=== PATIENT | female | born 1960 ===

== ENCOUNTER 2017-04-14 11:40 | Observation (INO) | payer MEDICAID ==
--- NOTE | 2017-04-14 13:01 | ED PDOC ---
HPI: Hypertension/Hypotension Time Seen by Provider: 04/14/17 12:00 Chief Complaint (Nursing): High Blood Pressure History Per: Patient History/Exam Limitations: no limitations Onset/Duration Of Symptoms: Days (3), Gradual Current Symptoms Are (Timing): Still Present Associated Symptoms: Chest Pain. denies: Dyspnea, Dizziness, Blurred Vision, Focal Weakness, Headache Severity: Mild Exacerbating Factor(s): Pos: None Additional History Per: Patient Additional Complaint(s): intermittent chest pressure for 3 days sent in by medical clinic Past Medical History Reviewed: Historical Data, Nursing Documentation, Vital Signs Vital Signs: Last Vital Signs Temp 99.4 F 04/14/17 11:43 Pulse 112 H 04/14/17 11:43 Resp 18 04/14/17 11:43 BP 118/82 04/14/17 11:43 Pulse Ox 99 04/14/17 11:43 - Medical History PMH: HTN, Hypercholesterolemia, Hypothyroidism - Surgical History Surgical History: - Family History Family History: States: Unknown Family Hx - Living Arrangements Living Arrangements: With Family - Social History Current smoker - smoking cessation education provided: No - Allergies Allergies/Adverse Reactions: Allergies Allergy/AdvReac Type Severity Reaction Status Date / Time Penicillins Allergy RASH Verified 04/14/17 11:43 Review of Systems ROS Statement: Except As Marked, All Systems Reviewed And Found Negative Constitutional: Negative for: Fever, Chills Cardiovascular: Positive for: Chest Pain. Negative for: Palpitations Respiratory: Negative for: Cough, Shortness of Breath Gastrointestinal: Negative for: Nausea, Vomiting, Abdominal Pain Musculoskeletal: Negative for: Neck Pain Neurological: Negative for: Weakness, Numbness Physical Exam - Reviewed Nursing Documentation Reviewed: Yes Vital Signs Reviewed: Yes - Physical Exam Appears: Positive for: Uncomfortable Head Exam: Positive for: ATRAUMATIC, NORMAL INSPECTION, NORMOCEPHALIC Eye Exam: Positive for: Normal appearance, EOMI Neck: Positive for: Normal, Painless ROM, Supple. Negative for: Decreased ROM, Limited ROM, Trachea Midline Cardiovascular/Chest: Positive for: Regular Rate, Rhythm, Chest Non Tender. Negative for: Edema, Gallop, Murmur, Bradycardia, Tachycardia Respiratory: Positive for: Normal Breath Sounds. Negative for: Decreased Breath Sounds, Accessory Muscle Use, Crackles, Rales, Rhonchi, Stridor, Wheezing , Respiratory Distress Pulses-Radial (L): 2+ Pulses-Radial (R): 2+ Gastrointestinal/Abdominal: Positive for: Normal Exam, Bowel Sounds, Soft. Negative for: Tenderness Back: Positive for: Normal Inspection. Negative for: L CVA Tenderness, R CVA Tenderness, Vertebral Tenderness Extremity: Positive for: Normal ROM. 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 Negative for: Motor/Sensory Deficits, Aphasia, Facial Droop - Laboratory Results Result Diagrams: 04/14/17 12:57 04/14/17 12:57 - ECG ECG: Positive for: Interpreted By Me ECG Rhythm: Positive for: Normal QRS, Normal ST Segment, Sinus Rhythm. Negative for: ST/T Changes Interpretation Of Abn EK nsr, non specifc t wave inversion in v2. O2 Sat by Pulse Oximetry: 99 Pulse Ox Interpretation: Normal Disposition - Clinical Impression Clinical Impression: Chest pain - Patient ED Disposition Is Patient to be Admitted: Yes Counseled Patient/Family Regarding: Studies Performed, Diagnosis - Disposition Disposition Time: 16:30 Condition: STABLE Forms: [employer] (Palestinian) - Pt Status Changed To: Hospital Disposition Of: Observation - POA Present On Arrival: None
--- NOTE | 2017-04-14 13:29 | RAD ---
HISTORY: chest pain COMPARISON: 01/16/2014 TECHNIQUE: Chest PA and lateral FINDINGS: LUNGS: No active pulmonary disease. PLEURA: No significant pleural effusion identified. No pneumothorax apparent. CARDIOVASCULAR: No radiographic findings to suggest acute or significant cardiovascular disease. OSSEOUS STRUCTURES: No significant abnormalities. VISUALIZED UPPER ABDOMEN: Normal. OTHER FINDINGS: None. IMPRESSION: No active disease. No significant interval change compared to the prior examination(s). Concordant results with the preliminary interpretation rendered by the emergency department physician procedure.
[2017-04-14 13:41] LABS: BASO % 0.9 % (0.0-2.0); EOS # 0.1 K/uL (0.0-0.7); EOS % 2.5 % (0.0-4.0); HEMOGLOBIN 13.2 g/dL (12.0-16.0); LYMPH # 1.3 K/uL (1.0-4.3); MEAN CELL VOLUME 86.9 fl (81.0-99.0); MEAN CORPUSCULAR HEMOGLOBIN 28.2 pg (27.0-31.0); MEAN CORPUSCULAR HGB CONC 32.4 g/dL (33.0-37.0); MEAN PLATELET VOLUME 9.8 fl (7.2-11.7); MONO # 0.4 K/uL (0.0-0.8); NEUT # 3.4 K/uL (1.8-7.0); NEUT % 64.6 % (50.0-75.0); NRBC % 0.1 % (0.0-0.0); RBC 4.68 Mil/uL (3.80-5.20); RED CELL DISTRIBUTION WIDTH 13.7 % (11.5-14.5); WHITE BLOOD COUNT 5.2 K/uL (4.8-10.8)
[2017-04-14 13:56] LABS: ALB/GLOB RATIO 1.3 (1.0-2.1); ALBUMIN 4.4 g/dL (3.5-5.0); ALT/SGPT 34 U/L (9-52); AST/SGOT 24 U/L (14-36); BLOOD UREA NITROGEN 10 mg/dl (7-17); CALCIUM 9.1 mg/dL (8.4-10.2); GFR AFRICAN-AMERICAN > 60; GFR NON-AFRICAN AMERICAN > 60; LIPASE 199 U/L (23-300)
[2017-04-14 14:04] LABS: INR 1.1 (0.9-1.2); PROTHROMBIN TIME 10.8 Seconds (9.8-13.1)
[2017-04-14 14:09] LABS: B-TYPE NATRIURETIC PEPTIDE 46.5 pg/ml (0-900)
[2017-04-14 15:10] LABS: SQUAMOUS EPITHIAL 1 /hpf (0-5); URINE BACTERIA RARE (<OCC); URINE BILIRUBIN NEGATIVE (NEGATIVE); URINE BLOOD NEGATIVE (NEGATIVE); URINE CLARITY SLIGHTY-CLOUDY (Clear); URINE COLOR YELLOW (YELLOW); URINE GLUCOSE (UA) NEG (Normal); URINE LEUKOCYTE ESTERASE NEG Leu/uL (Negative); URINE NITRATE NEGATIVE (NEGATIVE); URINE PROTEIN NEGATIVE (NEGATIVE); URINE UROBILINOGEN 0.2-1.0 mg/dL (0.2-1.0)
--- NOTE | 2017-04-14 19:56 | CP.PCM.HP ---
History of Present Illness - History of Present Illness History of Present Illness: 56 y/o F with PMH including HTN, HLD, Hypothyroidism, Prediabetes presented to ED with 2 day history of chest pain. Patient states pain is poorly localized and "pressure" like in quality, as if "someone is pushing on my chest." Pain has been intermittent, occurring approximately twice per day and lasting 10-20 minutes at a time and not associated with physical activity. Patient does not identify any alleviating or aggravating factors. Patient states she is able to walk over 1 mile and at least 10 flights of stairs without exertional chest pain or SOB. She denies any associated fevers, chills, headaches, diaphoresis, cough, abdominal pain, nausea or vomiting. Patient further denies tobacco, ETOH or illicit drug abuse. She has experienced similar symptoms years ago which were associated with anxiety and possible PTSD secondary to the loss of 2 siblings in ' and 97'. She has taken unknown anxiolytics in the past but does not recall the names and does not wish to take any currently. Patient is guarded about her psych history. She states "sometimes I just think about things ," but denies depression, suicidal/homicidal ideation or auditory/visual hallucinations. PMD: NHC Present on Admission - Present on Admission Any Indicators Present on Admission: No History of DVT/PE: No History of Uncontrolled Diabetes: No Urinary Catheter: No Decubitus Ulcer Present: No Past Patient History - Past Social History Smoking Status: Never Smoked Alcohol: None Drugs: Denies Home Situation {Lives}: With Family (With 90 y/o mother ) - CARDIAC Hx Hypercholesterolemia: Yes Hx Hypertension: Yes - PULMONARY Hx Respiratory Disorders: No - ENDOCRINE/METABOLIC Hx Hypothyroidism: Yes - PSYCHIATRIC Hx Anxiety: Yes Hx Post Traumatic Stress Disorder: Yes Hx Substance Use: No - SURGICAL HISTORY Hx Section: Yes (x 4) Hx Hysterectomy: Yes - ANESTHESIA Hx Anesthesia: Yes Hx Anesthesia Reactions: No Hx Malignant Hyperthermia: No Meds Allergies/Adverse Reactions: Allergies Allergy/AdvReac Type Severity Reaction Status Date / Time Penicillins Allergy RASH Verified 04/14/17 11:43 Physical Exam - Constitutional Appears: Non-toxic, No Acute Distress - Head Exam Head Exam: ATRAUMATIC, NORMAL INSPECTION, NORMOCEPHALIC - Eye Exam Eye Exam: EOMI, PERRL - ENT Exam ENT Exam: Mucous Membranes Moist - Respiratory Exam Respiratory Exam: Clear to Auscultation Bilateral, NORMAL BREATHING PATTERN. absent: Chest Wall Tenderness, Rhonchi, Wheezes, Respiratory Distress - Cardiovascular Exam Cardiovascular Exam: REGULAR RHYTHM, RRR, +S1, +S2. absent: Systolic Murmur - GI/Abdominal Exam GI & Abdominal Exam: Normal Bowel Sounds, Soft. absent: Distended, Guarding, Rebound, Tenderness - Extremities Exam Extremities exam: Positive for: normal capillary refill. Negative for: calf tenderness, pedal edema - Neurological Exam Neurological exam: Alert, Oriented x3 - Psychiatric Exam Psychiatric exam: Anxious - Skin Skin Exam: Dry, Normal Color, Warm Results - Vital Signs Recent Vital Signs: Last Vital Signs Temp 98.5 F 04/14/17 17:52 Pulse 85 04/14/17 17:52 Resp 18 04/14/17 17:52 BP 151/95 H 04/14/17 17:52 Pulse Ox 100 04/14/17 17:52 - Labs Result Diagrams: 04/14/17 12:57 04/14/17 12:57 Assessment & Plan - Assessment and Plan (Free Text) Assessment: 56 y/o F with PMH including HTN, HLD, Hypothyroidism, Prediabetes, Anxiety d/o presented to ED with 2 day history of chest pain. Plan: Chest pain -Etiology undetermined, rule out ACS -Patient denies active chest pain at time of assessment -EKG does not reveal any acute ischemic changes -Troponin negative x1, will follow serial troponins -CXR no acute pulmonary disease -D-dimer WNL -Lipase WNL -ASA 325mg PO administered -Atorvastatin 20mg PO qhs -O2 via NC prn -Admit to telemetry for continuous cardiac monitoring Hypertension -Well controlled -Continue metoprolol tartrate 12.5mg PO bid and ramipril 5mg PO daily as per home meds Hypothyroidism -Last TSH: 2.410 on 06/15/16 -Repeat TSH ordered -Continue Synthroid 50mcg daily Prediabetes -Last HgbA1c: 6.1% on 10/06/16 -Moderate consistent carbohydrate diet Hyperlipidemia -Last lipid panel performed on 06/15/16: Total chol: 150, LDL: 83, HDL: 42 -Repeat lipid panel -Continue Atorvastatin 20mg PO HS Obesity -BMI 34.5 DVT Prophylaxis -Lovenox 40mg SC daily
[2017-04-15] MEDS ORDERED: Levothyroxine 50 MCG TAB PO SCH (06:30)
[2017-04-15 08:27] LABS: HDL CHOLESTEROL 40 MG/DL (30-70)
[2017-04-15 08:37] LABS: LDL CHOLESTEROL 91 mg/dL (0-129)
[2017-04-15] MEDS ORDERED: Enoxaparin 40 mg Syringe SC SCH (09:00)
--- NOTE | 2017-04-15 14:22 | CARD ---
APPROVED REPORT EKG Measurement Heart [id number] ND [id number] <Conclusion> Normal sinus rhythm with sinus arrhythmia Normal ECG
[2017-04-15 16:01] VITALS: BP 114/81; PULSE 79; RESP 18; TEMP 98; O2SAT 97
--- NOTE | 2017-04-15 16:06 | CP.PCM.DIS ---
Provider - Provider Date of Admission: 04/14/17 18:57 Attending physician: Betty Guzman MD Time Spent in preparation of Discharge (in minutes): 35 Diagnosis - Discharge Diagnosis (1) Chest pain Status: Resolved Hospital Course - Lab Results Lab Results: Most Recent Lab Values WBC 5.2 K/uL (4.8-10.8) 04/14/17 12:57 RBC 4.68 Mil/uL (3.80-5.20) 04/14/17 12:57 Hgb 13.2 g/dL (12.0-16.0) 04/14/17 12:57 Hct 40.7 % (34.0-47.0) 04/14/17 12:57 MCV 86.9 fl (81.0-99.0) 04/14/17 12:57 MCH 28.2 pg (27.0-31.0) 04/14/17 12:57 MCHC 32.4 g/dL (33.0-37.0) L 04/14/17 12:57 RDW 13.7 % (11.5-14.5) 04/14/17 12:57 Plt Count 161 K/uL (130-400) 04/14/17 12:57 MPV 9.8 fl (7.2-11.7) 04/14/17 12:57 Neut % (Auto) 64.6 % (50.0-75.0) 04/14/17 12:57 Lymph % (Auto) 24.0 % (20.0-40.0) 04/14/17 12:57 Petroleum % (Auto) 8.0 % (0.0-10.0) 04/14/17 12:57 Eos % (Auto) 2.5 % (0.0-4.0) 04/14/17 12:57 Baso % (Auto) 0.9 % (0.0-2.0) 04/14/17 12:57 Neut # 3.4 K/uL (1.8-7.0) 04/14/17 12:57 Lymph # 1.3 K/uL (1.0-4.3) 04/14/17 12:57 Petroleum # 0.4 K/uL (0.0-0.8) 04/14/17 12:57 Eos # 0.1 K/uL (0.0-0.7) 04/14/17 12:57 Baso # 0.0 K/uL (0.0-0.2) 04/14/17 12:57 PT 10.8 Seconds (9.8-13.1) 04/14/17 12:57 INR 1.1 (0.9-1.2) 04/14/17 12:57 APTT 29.0 Seconds (25.6-37.1) 04/14/17 12:57 D-Dimer, Quantitative 207 ng/mlDDU (0-230) 04/14/17 12:57 Sodium 141 mmol/l (132-148) 04/14/17 12:57 Potassium 4.1 MMOL/L (3.6-5.0) 04/14/17 12:57 Chloride 106 mmol/L (98-107) 04/14/17 12:57 Carbon Dioxide 25 mmol/L (22-30) 04/14/17 12:57 Anion Gap 14 (10-20) 04/14/17 12:57 BUN 10 mg/dl (7-17) 04/14/17 12:57 Creatinine 0.7 mg/dL (0.7-1.2) 04/14/17 12:57 Est GFR ( Amer) > 60 04/14/17 12:57 Est GFR (Non-Af Amer) > 60 04/14/17 12:57 Random Glucose 117 mg/dL (65-105) H 04/14/17 12:57 Calcium 9.1 mg/dL (8.4-10.2) 04/14/17 12:57 Magnesium 2.0 MG/DL (1.6-2.3) 04/14/17 12:57 Total Bilirubin 0.4 mg/dl (0.2-1.3) 04/14/17 12:57 AST 24 U/L (14-36) 04/14/17 12:57 ALT 34 U/L (9-52) 04/14/17 12:57 Alkaline Phosphatase 129 U/L (38-126) H 04/14/17 12:57 Troponin I < 0.0120 ng/mL (0.00-0.120) 04/15/17 06:00 NT-Pro-B Natriuret Pep 46.5 pg/ml (0-900) 04/14/17 12:57 Total Protein 7.8 G/DL (6.3-8.2) 04/14/17 12:57 Albumin 4.4 g/dL (3.5-5.0) 04/14/17 12:57 Globulin 3.4 gm/dL (2.2-3.9) 04/14/17 12:57 Albumin/Globulin Ratio 1.3 (1.0-2.1) 04/14/17 12:57 Triglycerides 130 mg/DL (0-149) 04/15/17 06:00 Cholesterol 166 mg/dL (0-199) 04/15/17 06:00 LDL Cholesterol Direct 91 mg/dL (0-129) 04/15/17 06:00 HDL Cholesterol 40 MG/DL (30-70) 04/15/17 06:00 Lipase 199 U/L (23-300) 04/14/17 12:57 TSH 3rd Generation 4.49 mIU/ML (0.46-4.68) 04/15/17 06:00 Urine Color Yellow (YELLOW) 04/14/17 14:50 Urine Clarity Slighty-cloudy (Clear) 04/14/17 14:50 Urine pH 5.0 (5.0-8.0) 04/14/17 14:50 Ur Specific [place] 1.019 (1.003-1.030) 04/14/17 14:50 Urine Protein Negative mg/dL (NEGATIVE) 04/14/17 14:50 Urine Glucose (UA) Neg mg/dL (Normal) 04/14/17 14:50 Urine Ketones Negative mg/dL (NEGATIVE) 04/14/17 14:50 Urine Blood Negative (NEGATIVE) 04/14/17 14:50 Urine Nitrate Negative (NEGATIVE) 04/14/17 14:50 Urine Bilirubin Negative (NEGATIVE) 04/14/17 14:50 Urine Urobilinogen 0.2-1.0 mg/dL (0.2-1.0) 04/14/17 14:50 Ur Leukocyte Esterase Neg [place]/uL (Negative) 04/14/17 14:50 Urine RBC (Auto) 4 /hpf (0-3) H 04/14/17 14:50 Urine Microscopic WBC 1 /hpf (0-5) 04/14/17 14:50 Ur Squamous Epith Cells 1 /hpf (0-5) 04/14/17 14:50 Urine Bacteria Rare (<OCC) 04/14/17 14:50 - Hospital Course Hospital Course: 56 year old female HTN, HLD, Hypothyroidism and prediabeties, admitted for chest pain, ACS was ruled out. Chest pain resolved. EKG and troponins negative. TSH WNL. Will start the patient on ToprolXL 25mg. She will follow up with Scientific Technical Writer, Dr. Pina next week. Spoke with Dr. Dorsey, patient to come to office for follow up. She has an appt. with Dr. Taylor on May 01 at 3:40PM. Medications: Start Toprol 25mg continue: Ramipril 5mg Levothyroxine 50mg Atorvastatin 20mg Discharge Exam - Head Exam Head Exam: ATRAUMATIC, NORMAL INSPECTION, NORMOCEPHALIC - Eye Exam Eye Exam: EOMI, Normal appearance, PERRL - Respiratory Exam Respiratory Exam: UNREMARKABLE - Cardiovascular Exam Cardiovascular Exam: REGULAR RHYTHM, RRR, +S1, +S2 - GI/Abdominal Exam GI & Abdominal Exam: Normal Bowel Sounds, Unremarkable. absent: Tenderness - Neurological Exam Neurological exam: Alert, CN II-XII Intact, Normal Gait, Oriented x3 - Psychiatric Exam Psychiatric exam: Normal Affect, Normal Mood - Skin Skin Exam: Dry, Intact, Warm Discharge Plan - Discharge Medications Prescriptions: Metoprolol Succinate [Toprol XL] 25 mg PO DAILY #30 tab - Follow Up Plan Condition: STABLE Disposition: HOME/ ROUTINE Instructions: Chest Pain (DC) Additional Instructions: Patient will follow up at the [facility] on May 01 At 3:[address] Taylor. She will also make follow up appt. with her executive wellness programs director, Dr. Pina on Monday.
== END 2017-04-15 17:55 | disposition home or self-care (01) ==
LOC: H.ER 11:40 → H.ERHOLD 18:57 → H.TEL 21:03
PROVIDERS: ADMIT Family Medicine Geriatric Medicine; ATTEND Family Medicine Geriatric Medicine
DX: R07.9 Chest pain, unspecified (principal); E03.9 Hypothyroidism, unspecified; E78.00 Pure hypercholesterolemia, unspecified; E78.5 Hyperlipidemia, unspecified; R73.03 Prediabetes; F43.10 Post-traumatic stress disorder, unspecified; I10 Essential (primary) hypertension; Z90.710 Acquired absence of both cervix and uterus; F41.9 Anxiety disorder, unspecified

== ENCOUNTER 2017-04-17 18:30 | Emergency (ER) | payer MEDICAID ==
[2017-04-17 18:45] VITALS: BP 132/86; PULSE 84; RESP 16; TEMP 98.1; O2SAT 98
--- NOTE | 2017-04-17 19:33 | ED PDOC ---
HPI: General Adult Time Seen by Provider: 04/17/17 19:16 Chief Complaint (Nursing): High Blood Pressure Chief Complaint (Provider): high blood pressure History Per: Patient Additional Complaint(s): 56yo F in ED for Rx medication-metoprolol states that when d/c form inpt Rx was not sent to pharmacy. no other complaints. Past Medical History Reviewed: Historical Data, Nursing Documentation, Vital Signs Vital Signs: Last Vital Signs Temp 98.1 F 04/17/17 18:41 Pulse 84 04/17/17 18:55 Resp 16 04/17/17 18:41 BP 132/86 04/17/17 18:41 Pulse Ox 98 04/17/17 18:41 - Medical History PMH: Anemia, Anxiety, HTN, Hypercholesterolemia, Hypothyroidism, Post Traumatic Stress Disorder Denies: HIV, Chronic Kidney Disease - Surgical History Surgical History: - Family History Family History: States: Unknown Family Hx - Home Medications Home Medications: Ambulatory Orders Medication Instructions Recorded Atorvastatin [Lipitor] 20 mg PO DAILY 04/14/17 Levothyroxine [Synthroid] 50 mcg PO DAILY 04/14/17 Ramipril [Altace] 5 mg PO DAILY 04/14/17 Metoprolol Succinate [Toprol XL] 25 mg PO DAILY #30 tab 04/15/17 Metoprolol Succinate [Toprol XL] 25 mg PO DAILY #30 tab 04/17/17 - Allergies Allergies/Adverse Reactions: Allergies Allergy/AdvReac Type Severity Reaction Status Date / Time Penicillins Allergy RASH Verified 04/14/17 11:43 Review of Systems ROS Statement: Except As Marked, All Systems Reviewed And Found Negative Constitutional: Negative for: Weakness Physical Exam - Reviewed Nursing Documentation Reviewed: Yes Vital Signs Reviewed: Yes - Physical Exam Appears: Positive for: Well, Non-toxic, No Acute Distress Head Exam: Positive for: ATRAUMATIC, NORMAL INSPECTION, NORMOCEPHALIC Skin: Positive for: Normal Color, Warm, DRY Eye Exam: Positive for: EOMI, Normal appearance, PERRL ENT: Positive for: Normal ENT Inspection Neck: Positive for: Normal, Painless ROM Cardiovascular/Chest: Positive for: Regular Rate, Rhythm Respiratory: Positive for: CNT, Normal Breath Sounds Gastrointestinal/Abdominal: Positive for: Normal Exam, Bowel Sounds, Soft Back: Positive for: Normal Inspection Extremity: Positive for: Normal ROM Neurologic/Psych: Positive for: Alert, Oriented - ECG O2 Sat by Pulse Oximetry: 98 Medical Decision Making Medical Decision Making: Rx given to pt. advised to keep f.u appts. Disposition - Clinical Impression Clinical Impression: Medication refill - Patient ED Disposition Is Patient to be Admitted: No Counseled Patient/Family Regarding: Need For Followup, Rx Given - Disposition Disposition: Routine/Home Disposition Time: 19:32 Condition: GOOD Prescriptions: Metoprolol Succinate [Toprol XL] 25 mg PO DAILY #30 tab Instructions: Hypertension (ED) Forms: Written (Austrian)
== END 2017-04-17 19:44 | disposition home or self-care (01) ==
LOC: H.ER 18:30
DX: I10 Essential (primary) hypertension (principal); E03.9 Hypothyroidism, unspecified; E78.00 Pure hypercholesterolemia, unspecified; F43.10 Post-traumatic stress disorder, unspecified; Z88.0 Allergy status to penicillin

== ENCOUNTER 2017-05-03 19:37 | Emergency (ER) | payer MEDICAID ==
[2017-05-03 19:49] VITALS: BP 131/89; PULSE 100; RESP 18; TEMP 99; O2SAT 99
--- NOTE | 2017-05-03 20:37 | ED PDOC ---
Lower Extremity Pain/Injury Time Seen by Provider: 05/03/17 19:57 Chief Complaint (Nursing): Lower Extremity Problem/Injury Chief Complaint (Provider): Left knee pain History Per: Patient History/Exam Limitations: no limitations Onset/Duration Of Symptoms: Days (x 2 weeks) Current Symptoms Are (Timing): Still Present Additional Complaint(s): Jemma is a 56 y/o female with a past medical history of hypertension and hypothyroidism, who presents to the ED complaining of left knee pain, ongoing for 2 weeks. States she fell backwards 2-3 days ago and slipped, resulting in a bruise to the knee. Not taking any medications for pain relief. Patient reports being compliant with blood pressure and cholesterol medications. States she has not seen an Orthopedist yet. PMD: [facility] Past Medical History Reviewed: Historical Data, Nursing Documentation, Vital Signs Vital Signs: Last Vital Signs Temp 99 F 05/03/17 19:47 Pulse 100 H 05/03/17 19:47 Resp 18 05/03/17 19:47 BP 131/89 05/03/17 19:47 Pulse Ox 99 05/03/17 19:47 - Medical History PMH: Anemia, Anxiety, HTN, Hypercholesterolemia, Hypothyroidism, Post Traumatic Stress Disorder Denies: HIV, Chronic Kidney Disease - Surgical History Surgical History: (x 4) Other surgeries: Hysterectomy - Family History Family History: States: Unknown Family Hx - Home Medications Home Medications: Ambulatory Orders Medication Instructions Recorded Atorvastatin [Lipitor] 20 mg PO DAILY 04/14/17 Levothyroxine [Synthroid] 50 mcg PO DAILY 04/14/17 Ramipril [Altace] 5 mg PO DAILY 04/14/17 Metoprolol Succinate [Toprol XL] 25 mg PO DAILY #30 tab 04/15/17 Metoprolol Succinate [Toprol XL] 25 mg PO DAILY #30 tab 04/17/17 - Allergies Allergies/Adverse Reactions: Allergies Allergy/AdvReac Type Severity Reaction Status Date / Time Penicillins Allergy RASH Verified 04/14/17 11:43 Review of Systems ROS Statement: Except As Marked, All Systems Reviewed And Found Negative Musculoskeletal: Positive for: Leg Pain (Left knee pain) Physical Exam - Reviewed Nursing Documentation Reviewed: Yes Vital Signs Reviewed: Yes - Physical Exam Appears: Positive for: Non-toxic, No Acute Distress Head Exam: Positive for: ATRAUMATIC, NORMAL INSPECTION, NORMOCEPHALIC Skin: Positive for: Normal Color, Warm, Dry Eye Exam: Positive for: EOMI, Normal appearance, PERRL Neck: Positive for: Normal, Painless ROM Extremity: Positive for: Normal ROM. Negative for: Tenderness (brian point tenderness) Neurologic/Psych: Positive for: Alert, Oriented. Negative for: Motor/Sensory Deficits - ECG O2 Sat by Pulse Oximetry: 99 (RA) Pulse Ox Interpretation: Normal Medical Decision Making Medical Decision Making: Time: 20:27 Initial Plan: --Pending X-Ray Left Knee --Patient offered Motrin, but declined x-ray without acute findings. (+) degenerative changes. Scribe Attestation: Documented by Aleisha Velasco, acting as a scribe for Janell Lea PA-C Provider Scribe Attestation: All medical record entries made by the Scribe were at my direction and personally dictated by me. I have reviewed the chart and agree that the record accurately reflects my personal performance of the history, physical exam, medical decision making, and the department course for this patient. I have also personally directed, reviewed, and agree with the discharge instructions and disposition. Disposition - Clinical Impression Clinical Impression: Knee pain - Patient ED Disposition Is Patient to be Admitted: No Counseled Patient/Family Regarding: Diagnosis, Need For Followup - Disposition Referrals: Asif Hinojosa III, MD [Staff Provider] - Disposition: Routine/Home Disposition Time: 22:24 Condition: GOOD Additional Instructions: Ice, elevation, aleve for pain. Follow-up with orthopedics. Instructions: Knee Pain (ED)
--- NOTE | 2017-05-04 09:30 | RAD ---
PROCEDURE: Left Knee Radiographs. HISTORY: Pain. COMPARISON: None. FINDINGS: BONES: This there is no acute displaced fracture or bone destruction. Bone alignment is normal. There is periarticular bone demineralization. JOINTS: There is moderate tricompartmental degenerative osteoarthrosis with reduced joint space and marginal osteophytes, worse in the medial compartment. JOINT EFFUSION: There is a moderate suprapatellar joint effusion. OTHER FINDINGS: None. IMPRESSION: Moderate tricompartmental degenerative osteoarthrosis, worse in the medial compartment. Moderate suprapatellar joint effusion.
== END 2017-05-03 23:02 | disposition home or self-care (01) ==
LOC: H.ER 19:37
DX: M25.562 Pain in left knee (principal)